=== PATIENT | male | born 1980 | race American Indian/Alaskan Native ===

== ENCOUNTER 2017-03-02 12:54 | Emergency (ER) | payer OTHER ==
--- NOTE | 2017-03-02 13:10 | Emergency Department Report ---
Chief Complaint: Chest Pain Stated Complaint: CHEST PAINS/SOB Time Seen by Provider: 03/02/17 13:08 - HPI History of Present Illness: PT c/o chest pain and sob. PT states his pain started 2 days ago. Pt reports fatigue for a month - ROS Review of Systems: - cough + substernal chest pain - Exam Physical Exam: PT looks well, non toxic. pt in no acute distress chest wall tender to deep palpation MSE screening note: Focused history and physical exam performed. Due to findings the following was ordered: ekg, xr, labs ED Disposition for MSE Condition: Stable
--- NOTE | 2017-03-02 13:50 | XRay Report ---
ROUTINE CHEST, TWO VIEWS: HISTORY: chest pain. The trachea, heart, mediastinal contour, lung reinoso and bony thorax are unremarkable. IMPRESSION: Unremarkable chest x-ray.
[2017-03-02 13:54] LABS: Basophils % (Auto) 0.5 % (0.0-1.8); Eosinophils % (Auto) 3.4 % (0.0-4.3); Hematocrit 44.6 % (35.5-45.6); Mean Corpuscular HGB Conc 34 % (32-34); Mean Corpuscular Hemoglobin 30 pg (28-32); Mean Corpuscular Volume 90 fl (84-94); Platelet Count 222 K/mm3 (140-440); Red Blood Count 4.97 M/mm3 (3.65-5.03); Red Cell Distribution Width 13.7 % (13.2-15.2); White Blood Count 8.7 K/mm3 (4.5-11.0)
[2017-03-02 14:04] LABS: INR 1.08 (0.87-1.13)
[2017-03-02 14:19] LABS: Alanine Aminotransferase 16 units/L (7-56); Albumin 4.2 g/dL (3.9-5); Albumin/Globulin Ratio 1.2 %; Alkaline Phosphatase 93 units/L (35-129); Anion Gap 18 mmol/L; Blood Urea Nitrogen 9 mg/dL (9-20); Calcium 8.8 mg/dL (8.4-10.2); Carbon Dioxide 23 mmol/L (22-30); Chloride 99.7 mmol/L (98-107); Glucose 107 mg/dL (75-100); Sodium 137 mmol/L (137-145); Total Protein 7.6 g/dL (6.3-8.2)
--- NOTE | 2017-03-02 17:28 | Emergency Department Report ---
ED Chest Pain HPI - General Chief Complaint: Chest Pain Stated Complaint: CHEST PAINS/SOB Time Seen by Provider: 03/02/17 13:08 Source: patient Mode of arrival: Ambulatory Limitations: No Limitations - History of Present Illness Initial Comments: 6-year-old male here with multiple complaints. Patient complains of some intermittent chest pain and tingling shortness of breath. Has no known history of these symptoms in the past. Denies fevers chills nausea vomiting. No other complaints. She is under significant stress as he is starting a new [employer] business. Complaint: chest pain -: Gradual Onset: during rest, during exertion Pain Location: substernal Pain Radiation: none Improves With: nothing Worsens With: nothing re: denies: nausea, vomting, diaphoresis, dyspnea, sense of impending doom - Related Data Allergies Allergy/AdvReac Type Severity Reaction Status Date / Time No Known Allergies Allergy Verified 03/02/17 13:12 Heart Score - HEART Score History: Slightly suspicious EKG: Normal Age: < 45 Risk factors: 1-2 risk factors Troponin: < normal limit HEART Score: 1 ED Review of Systems ROS: Stated complaint: CHEST PAINS/SOB Other details as noted in HPI Comment: All other systems reviewed and negative Constitutional: malaise. denies: chills, fever Eyes: denies: eye pain, eye discharge, vision change ENT: denies: ear pain, throat pain Respiratory: denies: cough, shortness of breath, wheezing Cardiovascular: chest pain. denies: palpitations Endocrine: no symptoms reported Gastrointestinal: denies: abdominal pain, nausea, diarrhea Genitourinary: denies: urgency, dysuria Musculoskeletal: denies: back pain, joint swelling, arthralgia Skin: denies: rash, lesions Neurological: weakness, paresthesias. denies: headache Psychiatric: denies: anxiety, depression Hematological/Lymphatic: denies: easy bleeding, easy bruising ED Past Medical Hx - Past Medical History Previous Medical History?: No - Surgical History Past Surgical History?: No - Social History Smoking Status: Current Every Day Smoker Substance Use Type: Alcohol ED Physical Exam - General Limitations: No Limitations ED Course Vital Signs 03/02/17 13:09 Temperature 98.9 F Pulse Rate 75 Respiratory 16 Rate Blood Pressure 152/95 O2 Sat by Pulse 97 Oximetry ED Medical Decision Making - Lab Data Result diagrams: 03/02/17 13:39 03/02/17 13:39 Laboratory Results - last 24 hr 03/02/17 03/02/17 03/02/17 13:39 13:39 13:39 WBC 8.7 RBC 4.97 Hgb 15.0 Hct 44.6 MCV 90 MCH 30 MCHC 34 RDW 13.7 Plt Count 222 Lymph % (Auto) 38.8 H [place] % (Auto) 11.2 H Eos % (Auto) 3.4 Baso % (Auto) 0.5 Lymph # 3.4 [place] # 1.0 H Eos # 0.3 Baso # 0.0 Seg Neutrophils % 46.1 Seg Neutrophils # 4.0 PT 13.9 INR 1.08 APTT 39.0 H Sodium 137 Potassium 4.0 Chloride 99.7 Carbon Dioxide 23 Anion Gap 18 BUN 9 Creatinine 1.2 Estimated GFR > 60 BUN/Creatinine Ratio 7.50 Glucose 107 H Calcium 8.8 Total Bilirubin 0.30 AST 18 ALT 16 Alkaline Phosphatase 93 Troponin T < 0.010 NT-Pro-B Natriuret Pep 8.19 Total Protein 7.6 Albumin 4.2 Albumin/Globulin Ratio 1.2 - EKG Data -: EKG Interpreted by Nd EKG shows normal: sinus rhythm - EKG Data 03/02/17 17:26 Sinus 76 normal axis normal intervals no ST-T wave changes. - Medical Decision Making 36-year-old male with no real significant urinary risk factors here with a low heart risk. Chest x-ray labs unremarkable. EKG nonischemic. Plan to discharge patient home. Portions of this chart were dictated with dictation software. There may be dictation errors contained within this note. Critical care attestation.: If time is entered above; I have spent that time in minutes in the direct care of this critically ill patient, excluding procedure time. ED Disposition Clinical Impression: Stress, Chest pain Disposition: DC-01 TO HOME OR SELFCARE Is pt being admited?: No Condition: Stable Instructions: Chest Pain (ED), Stress (ED) Additional Instructions: These follow-up with primary care physician for regular checkups. You do not currently need blood pressure medication but he may need some in the future. Referrals: PRIMARY CARE, [Primary Care Provider] - 3-5 Days
[2017-03-02 18:07] VITALS: BP 148/107
== END 2017-03-02 18:07 | disposition home or self-care (01) ==
LOC: ED 12:54
DX: R07.9 Chest pain, unspecified (principal); F43.9 Reaction to severe stress, unspecified; F17.200 Nicotine dependence, unspecified, uncomplicated
CPT/HCPCS: 36415; 71020; 80053; 83880; 84484; 85025; 85610; 85730; 93005; 93010